=== PATIENT | female | born 1970 | race Caucasian/White ===

== ENCOUNTER → 2016-08-30 | Outpatient (CLI) | payer OTHER ==
[~2016-08-30] MED LIST: AMIT10TA PO; ASPI-496 PO; CHOL400D3 PO; CICL12.5 PO; LACT1CAP43 PO; LEVO25TA2 PO; LEVO50TA PO; LORA10TA72 PO; LORA10TA75 PO; LORA2TAB99 PO; MAGN500C PO; MOME13HF2 PO; ONDA8TAB9 PO; OXYC1TAB8 PO; OXYC5TAB3 PO; POLY17PO5; RABE20TA5 PO; RANI150T8 PO; ROBAXIN PO; ROSU5TAB PO; SUMA50TA3 PO; TRAS440V IV; VALA500T PO; ZOLP10TA PO
== END | disposition home or self-care (01) ==
LOC: CFH 06:44
PROVIDERS: ATTEND Internal Medicine Hematology & Oncology
DX: C77.8 Secondary and unspecified malignant neoplasm of lymph nodes of multiple regions (principal); C50.912 Malignant neoplasm of unspecified site of left female breast; C79.51 Secondary malignant neoplasm of bone
CPT/HCPCS: 70553; 72146; A9585

== ENCOUNTER 2016-09-08 17:00 | Emergency (ER) | payer OTHER ==
[~2016-09-08] VITALS: Ht 160 cm; Wt 60.8 kg
[2016-09-08] MEDS ORDERED: DIPHENHYDRAMINE 50 MG/ML, 1ML IVPush ONE (18:00)
[2016-09-08] MEDS ORDERED: METOCLOPRAMIDE 5 MG/ML, 2ML IVPush ONE (18:00)
[2016-09-08] MEDS ORDERED: SODIUM CHLORIDE FLUSH 10ML SYR IVF ONE (18:00)
[2016-09-08] MEDS ORDERED: SODIUM CHLORIDE 0.9% 1,000ML IVBOLUS ONE (18:00)
[2016-09-08 18:25] LABS: HEMOGLOBIN 12.9 g/dL (11.7-16.4)
[2016-09-08 18:36] LABS: BLOOD UREA NITROGEN 10 mg/dL (7-18)
[2016-09-08] MEDS ORDERED: METOCLOPRAMIDE 5 MG/ML, 2ML ONE (19:10)
[2016-09-08] MEDS ORDERED: DIPHENHYDRAMINE 50 MG/ML, 1ML ONE (19:10)
[2016-09-08] MEDS ORDERED: MORPHINE SULFATE 4 MG/ML, 1ML ONE (21:19)
[2016-09-08] MEDS ORDERED: ONDANSETRON 2MG/ML, 2ML ONE (21:19)
[2016-09-08] MEDS ORDERED: ONDANSETRON 2MG/ML, 2ML IVPush ONE (21:30)
[2016-09-08] MEDS ORDERED: morphine SULFATE 10 MG/ML, 1ML IVPush ONE (21:30)
[2016-09-08] MEDS ORDERED: GADOBUTROL 7.5 MMOL/7.5 ML PFS ONE (21:46)
[2016-09-09] MEDS ORDERED: ONDANSETRON 2MG/ML, 2ML ONE (03:11)
[2016-09-09] MEDS ORDERED: MORPHINE SULFATE 4 MG/ML, 1ML ONE (03:11)
[2016-09-09] MEDS ORDERED: morphine SULFATE 10 MG/ML, 1ML IVPush ONE (03:30)
[2016-09-09] MEDS ORDERED: ONDANSETRON 2MG/ML, 2ML IVPush ONE (03:30)
[2016-09-09 03:35] VITALS: BP 130/80
[2016-09-09] MEDS ORDERED: DEXAMETHASONE 4 MG TABLET PO ONE (04:00)
== END 2016-09-09 04:51 | disposition designated cancer center or children's hospital (05) ==
LOC: ED 19:10
DX: H54.61 Unqualified visual loss, right eye, normal vision left eye (principal); R22.9 Localized swelling, mass and lump, unspecified; G43.909 Migraine, unspecified, not intractable, without status migrainosus; E03.9 Hypothyroidism, unspecified; Z85.3 Personal history of malignant neoplasm of breast; Z90.10 Acquired absence of unspecified breast and nipple; Z88.6 Allergy status to analgesic agent
CPT/HCPCS: 36415; 70450; 70553; 80048; 82040; 85025; 96361; 96374; 96375; 96376; 99285; A9585; J1200; J2270; J2405; J2765; J7030

== ENCOUNTER → 2017-01-04 | Outpatient (CLI) | payer OTHER | END | disposition home or self-care (01) | LOC: CFH 12:16 | PROVIDERS: ATTEND Internal Medicine Hematology & Oncology | DX: C50.912 Malignant neoplasm of unspecified site of left female breast (principal); C77.8 Secondary and unspecified malignant neoplasm of lymph nodes of multiple regions; C79.51 Secondary malignant neoplasm of bone; E78.5 Hyperlipidemia, unspecified | CPT/HCPCS: 93306 ==

== ENCOUNTER → 2017-03-06 | Outpatient (CLI) | payer OTHER ==
[~2017-03-06] MED LIST changes: -CICL12.5 PO; +CICL12.52 PO; -MAGN500C PO; +MAGN500C9 PO; +RABE20TA18 PO; -RABE20TA5 PO
== END ==
LOC: ROC 13:13
PROVIDERS: ATTEND Radiology Radiation Oncology
DX: C50.912 Malignant neoplasm of unspecified site of left female breast (principal); C79.31 Secondary malignant neoplasm of brain; H54.61 Unqualified visual loss, right eye, normal vision left eye; Z90.12 Acquired absence of left breast and nipple
CPT/HCPCS: 99213; G0463

== ENCOUNTER → 2017-03-09 | Outpatient (CLI) | payer OTHER ==
[~2017-03-09] MED LIST changes: +GADOBUTROL 7.5 MMOL/7.5 ML PFS ONE
== END | disposition home or self-care (01) ==
LOC: CFH 12:00
PROVIDERS: ATTEND Radiology Radiation Oncology
DX: C79.31 Secondary malignant neoplasm of brain (principal); C50.919 Malignant neoplasm of unspecified site of unspecified female breast
CPT/HCPCS: 70553; A9585

== ENCOUNTER → 2017-03-13 | Outpatient (CLI) | payer OTHER | END | disposition home or self-care (01) | LOC: RAD 15:20 | PROVIDERS: ATTEND Radiology Radiation Oncology | DX: C79.51 Secondary malignant neoplasm of bone (principal); C79.31 Secondary malignant neoplasm of brain; C50.919 Malignant neoplasm of unspecified site of unspecified female breast | CPT/HCPCS: 72158; A9585; J1642 ==

== ENCOUNTER → 2017-03-16 | Outpatient (CLI) | payer OTHER | END | disposition home or self-care (01) | LOC: RAD 12:53 | PROVIDERS: ATTEND Radiology Radiation Oncology | DX: M50.33 Other cervical disc degeneration, cervicothoracic region (principal); M47.892 Other spondylosis, cervical region; M89.8X8 Other specified disorders of bone, other site; C79.49 Secondary malignant neoplasm of other parts of nervous system; C79.31 Secondary malignant neoplasm of brain; C50.919 Malignant neoplasm of unspecified site of unspecified female breast | CPT/HCPCS: 72156; 72157; A9585 ==

== ENCOUNTER 2018-02-11 16:55 | Inpatient (IN) | payer BC, OTHER ==
[~2018-02-11] VITALS: Ht 160 cm; Wt 46.2 kg
[~2018-02-11 16:55] MED LIST changes: -GADOBUTROL 7.5 MMOL/7.5 ML PFS ONE; +RANI150T23 PO; -RANI150T8 PO
[2018-02-11] MEDS ORDERED: HYDR5TAB PO ×2 (18:50)
[2018-02-11] MEDS ORDERED: HALO5TAB5 PO (18:50)
[2018-02-11] MEDS ORDERED: OXYC10TA6 PO (18:50)
[2018-02-11] MEDS ORDERED: METH-356 PO ×2 (18:50)
[2018-02-11 22:08] VITALS: BP 121/81
[2018-02-11] MEDS ORDERED: OXYcodone IR 5MG TABLET PO PRN (22:30)
[2018-02-11] MEDS ORDERED: LORazepam 1MG TABLET PO SCH (22:30)
[2018-02-11] MEDS ORDERED: ZOLPIDEM 10MG TABLET PO PRN (22:30)
[2018-02-11] MEDS ORDERED: HALOPERIDOL 1 MG TABLET PO SCH (22:30)
[2018-02-11] MEDS ORDERED: ONDANSETRON 8 MG TABLET PO PRN (22:30)
[2018-02-11] MEDS ORDERED: DOCUSATE 100 MG CAPSULE PO PRN (23:00)
[2018-02-11] MEDS ORDERED: ACETAMINOPHEN 325 MG TABLET PO PRN (23:00)
[2018-02-11] MEDS ORDERED: LABETALOL 5MG/ML, 20ML IVPush PRN (23:00)
[2018-02-12 01:57] VITALS: BP 98/64
[2018-02-12] MEDS ORDERED: LEVOTHYROXINE 50 MCG TABLET PO SCH (06:00)
[2018-02-12 06:47] VITALS: BP 86/53
[2018-02-12 07:54] LABS: MEAN CORPUSCULAR HEMOGLOBIN 30.6 pg (27.0-34.8); MEAN CORPUSCULAR HGB CONC 33.4 g/dL (32.4-35.8); MEAN CORPUSCULAR VOLUME 91.8 fL (80-100); MEAN PLATELET VOLUME 6.6 fL (7.4-10.4); PLATELET COUNT 307 x10^3/uL (130-400); RED BLOOD COUNT 3.57 x10^6/uL (3.82-5.3); RED CELL DISTRIBUTION WIDTH 14.2 % (9.6-15.2)
[2018-02-12 07:58] LABS: ALANINE AMINOTRANSFERASE 33 U/L (12-78); ALBUMIN 3.6 g/dL (3.4-5.0); ANION GAP 7 mmol/L (5-15); CALCIUM 8.6 mg/dL (8.5-10.1); CHLORIDE 103 mmol/L (98-107); CREATININE 0.54 mg/dL (0.55-1.02)
[2018-02-12 08:09] LABS: ALKALINE PHOSPHATASE 63 U/L (45-117); BILIRUBIN,TOTAL 0.4 mg/dL (0.2-1.0); TOTAL PROTEIN 6.5 g/dL (6.4-8.2)
[2018-02-12 08:32] LABS: BASOPHILS # (AUTO) 0.02 x10^3/uL (0-0.1); BASOPHILS % (AUTO) 1 % (0-1); EOSINOPHILS # (AUTO) 0.07 x10^3/uL (0-0.4); EOSINOPHILS % (AUTO) 2 % (1-7); LYMPHOCYTES # (AUTO) 0.75 x10^3/uL (1-3.4); LYMPHOCYTES % (AUTO) 26 % (22-44); MD SCAN; MONOCYTES # (AUTO) 0.31 x10^3/uL (0.2-0.8); MONOCYTES % (AUTO) 11 % (2-9); NEUTROPHILS # (AUTO) 1.72 x10^3/uL (1.8-6.8); NEUTROPHILS % (AUTO) 60 % (42-75)
[2018-02-12 08:33] LABS: FREE T4 (FREE THYROXINE) 1.31 ng/dL (0.76-1.46)
[2018-02-12 08:50] VITALS: BP 105/69
[2018-02-12] MEDS ORDERED: METHADONE 10 MG TABLET PO SCH (09:00)
[2018-02-12] MEDS: HYDROCORTISONE 5 MG TABLET PO SCH ×4 (09:04→16:09)
[2018-02-12] MEDS ORDERED: ENOXAPARIN 40 MG/0.4 ML SQ SCH (12:00)
[2018-02-12] MEDS ORDERED: GADOBUTROL 10 MMOL/10 ML PFS ONE (12:32)
[2018-02-12 13:34] VITALS: BP 101/68
[2018-02-12] MEDS ORDERED: METHADONE 5 MG TABLET PO SCH (21:00)
== END 2018-02-12 20:30 | disposition home or self-care (01) | DRG 54 ==
LOC: ED 19:56 → EDIP 20:35 → 3NE 21:55 → 3NW 02-12 17:39
PROVIDERS: ADMIT Internal Medicine; ATTEND Internal Medicine
DX: C79.49 Secondary malignant neoplasm of other parts of nervous system (principal); G93.6 Cerebral edema; C79.31 Secondary malignant neoplasm of brain; C79.89 Secondary malignant neoplasm of other specified sites; E03.9 Hypothyroidism, unspecified; Z51.5 Encounter for palliative care; Z82.3 Family history of stroke; H54.61 Unqualified visual loss, right eye, normal vision left eye; Z88.1 Allergy status to other antibiotic agents; Z88.8 Allergy status to other drugs, medicaments and biological substances; Z90.12 Acquired absence of left breast and nipple; Z85.3 Personal history of malignant neoplasm of breast
CPT/HCPCS: 36415; 70551; 70553; 80053; 83735; 84439; 84443; 84481; 85025; 99285; A9585; G0378